=== PATIENT | female | born 2000 | race Caucasian/White ===

== ENCOUNTER 2021-03-06 10:21 | Emergency (ER) | payer OTHER, SELFPAY ==
[2021-03-06 10:32] VITALS: BP 88/70; PULSE 100; RESP 16; TEMP 36.6; O2SAT 100
--- NOTE | 2021-03-06 10:32 | ED.SKABFB ---
HPI - Skin/Abscess/Foreign Bdy General Chief complaint: Skin/Abscess/Foreign Body Stated complaint: rt ankle pain Time Seen by Provider: 03/06/21 10:42 Source: patient and RN notes reviewed Mode of arrival: ambulatory Limitations: no limitations History of Present Illness HPI narrative: 21-year-old female presents with concern for seen 5 bites on bilateral lower ankles that have become painful, swollen, red, tender. Reports she sustained bites on the beach in [place] 3 days ago, reports the area is developed blisters and then redness, swelling, pain developed. She reports pain at rest and pain with weightbearing. She denies any musculoskeletal injury. She denies fever, body aches. MD complaint: rash and insect bite/sting Related Data Home Medications Medication Instructions Recorded Confirmed norgestimate-ethinyl estradiol 0.18 tablet PO DAILY 03/06/21 03/06/21 [[facility]] Allergies Allergy/AdvReac Type Severity Reaction Status Date / Time No Known Allergies Allergy Verified 03/06/21 10:36 Review of Systems Review of Systems: Narrative: CONSTITUTIONAL: Denies malaise, chills, sweats, or fever. SKIN: Reports scabbed insect bites on both ankles MUSCULOSKELETAL: Denies muscle skeletal pain or myalgia. All systems reviewed & are unremarkable except as noted in HPI and below PMFSH Social History Social History Gender identity (if verbalized by the patient): Female Comments At time of signature, agree with nursing past medical, surgical, social and family history. There is no relevant family history pertinent to the presenting complaint Exam Narrative: Exam Narrative: GENERAL: Well-appearing, well-nourished, and in no acute distress. HEAD: Normocephalic, atraumatic. EYES: PERRLA, conjunctivae clear, and EOMI. ENT: Mucous membranes moist. Oropharynx without edema, erythema or lesions. NECK: Supple. No lymphadenopathy CHEST: Clear to auscultation. No respiratory distress. HEART: Regular rate and rhythm. SKIN: Warm, dry. Bilateral posterior ankles erythematous, indurated, warm with mild edema, scabbed insect bites throughout the erythematous area noted NEURO: Alert and oriented x3. PSYCH: Normal mood and affect Course Course Emergency Course: Patient is aware of diagnosis, understands and agrees to treatment plan. Anticipatory guidance given. Patient agrees to follow-up as directed and is aware of reasons to seek care at the emergency department. Portions of this record may have been created with voice recognition software Vital Signs Vital signs: Vital Signs Temperature 98 F 03/06/21 10:32 Pulse Rate 100 03/06/21 10:32 Respiratory Rate 16 03/06/21 10:32 Blood Pressure 88/70 L 03/06/21 10:32 Pulse Oximetry 100 03/06/21 10:32 Temperature 98 F 03/06/21 10:32 Pulse Rate 100 03/06/21 10:32 Respiratory Rate 16 03/06/21 10:32 Blood Pressure 88/70 L 03/06/21 10:32 Pulse Oximetry 100 03/06/21 10:32 Reviewed. MDM - Skin/Abscess/Foreign Bdy MDM Narrative Medical decision making narrative: Does not appear at this time to be erythema multiforme, bullous, SJS, TEN; no evidence at this time to suggest RMSF, endocarditis or Lyme disease; patient looks well, nontoxic and is tolerating oral intake; no neurologic signs or symptoms; no headache, photophobia or neck pain; afebrile; appropriate for initial outpatient treatment; discussed the importance of follow-up, patient agrees; question, viral exanthema, contact dermatitis, allergic dermatitis, eczema, urticaria, cellulitis, insect bites. No soft palate or uvula edema, no tongue, lip edema or other mucosal involvement, no respiratory compromise, no stridor, no wheezing, no wheezing, no history of syncope, no hypotension, no nausea, vomiting, or diarrhea. Instructed patient to go to nearest ER immediately for any worsening symptoms including but not limited to: fever, spreading rash, pain, sore throat, headache, dizziness, chest pain,
== END 2021-03-06 10:55 | disposition home or self-care (01) ==
PROVIDERS: Emergency Provider Nurse Practitioner
DX: L03.116 Cellulitis of left lower limb (principal); L03.115 Cellulitis of right lower limb; S90.562A Insect bite (nonvenomous), left ankle, initial encounter; S90.561A Insect bite (nonvenomous), right ankle, initial encounter; W57.XXXA Bitten or stung by nonvenomous insect and other nonvenomous arthropods, initial encounter
CPT/HCPCS: 99213; G0463